=== PATIENT | male | born 1975 | race African-American/Black ===

== ENCOUNTER → 2020-09-10 | Outpatient (CLI) | payer MEDICAID ==
[~2020-09-10] MED LIST: BACITRACIN 50,000 UNITS/VIAL ONE; BUPIVACAINE HCL/PF 0.5% (5MG/ML) 10ML ONE; LIDOCAINE HCL 1% 20ML VIAL (Pyxis) INJ ONE
== END | disposition home or self-care (01) ==
LOC: LAB 09:25
PROVIDERS: ATTEND Specialist
DX: Z01.812 Encounter for preprocedural laboratory examination (principal); Z20.828 Contact with and (suspected) exposure to other viral communicable diseases; K40.90 Unilateral inguinal hernia, without obstruction or gangrene, not specified as recurrent
CPT/HCPCS: C9803; U0003

== ENCOUNTER → 2020-09-14 | Day surgery (SDC) | payer MEDICAID ==
[~2020-09-14] VITALS: Ht 182.9 cm; Wt 79.4 kg
[~2020-09-14] MED LIST changes: -BACITRACIN 50,000 UNITS/VIAL ONE; -BUPIVACAINE HCL/PF 0.5% (5MG/ML) 10ML ONE; +CLINDAMYCIN 900 MG PREMIX 50 ML IV ONE; +DIPHENHYDRAMINE 50MG/ML VIAL IV PRN; +EPINEPHRINE 1:1000 1 MG/ML AMP ONE; +FENTANYL CITRATE/PF 50MCG/ML 2ML VIAL ONE; +GLYCOPYRROLATE 0.2 MG/ML 2ML VIAL ONE; +HYDROMORPHONE HCL/PF 2MG/ML CPJ IV PRN; +KETOROLAC 30MG/ML VIAL IV NR; +KETOROLAC 30MG/ML VIAL ONE; +LACTATED RINGERS 1,000 ML IV SCH; +LIDOCAINE HCL 2% JELLY 5ML ONE; +MEPERIDINE HCL/PF 25MG/ML CPJ IV PRN; +METOCLOPRAMIDE HCL 10MG/2ML VIAL IV NR; +METOCLOPRAMIDE HCL 10MG/2ML VIAL ONE; +MIDAZOLAM HCL 2 MG/2 ML VIAL ONE; +NEOSTIGMINE METHYLSULFATE 1MG/ML 10 ML VIAL ONE; +ONDANSETRON HCL 4MG/2ML INJ ONE; +PHENYLEPHRINE HCL 10 MG/ML 1ML (IV VIAL) IV ONE; +PROPOFOL 200MG/20ML VIAL IV ONE; +ROCURONIUM BROMIDE 10MG/ML VIAL 5ML IV ONE; +SKIN ADHESIVE 0.7 GM EA TOP ONE; +SODIUM CHLORIDE 0.9% 10ML VIAL ONE
[2020-09-14 06:38] LABS: CHLORIDE 106 mEq/L (98-107)
[2020-09-14 14:27] VITALS: BP 145/98
== END | disposition home or self-care (01) ==
LOC: OR 05:54 → EDSEX 07:30
PROVIDERS: ATTEND Specialist
DX: K40.90 Unilateral inguinal hernia, without obstruction or gangrene, not specified as recurrent (principal); K42.9 Umbilical hernia without obstruction or gangrene; Z79.899 Other long term (current) drug therapy; Z98.890 Other specified postprocedural states; Z88.0 Allergy status to penicillin
CPT/HCPCS: 36415; 49585; 49650; 80048; J1885; J2250; J2370; J2405; J2704; J2710; J2765; J3010; J3490; S2900